=== PATIENT | female | born 1955 | race Caucasian/White ===

== ENCOUNTER 2020-06-21 16:01 | Observation (INO) | payer BC, OTHER ==
[~2020-06-21] VITALS: Ht 165.1 cm; Wt 63.5 kg
[2020-06-21] MEDS ORDERED: Norco 5-325 Ta1 EACH PO (18:49)
[2020-06-21 21:42] LABS: BASOPHILS ABSOLUTE AUTO 0.06 K/mm3 (0.00-0.23); BASOPHILS PERCENT AUTO 1 % (0-2); EOSINOPHILS ABSOLUTE AUTO 0.11 K/mm3 (0.00-0.68); EOSINOPHILS PERCENT AUTO 2 % (0-6); Hematocrit 40.6 % (33.0-51.0); Hemoglobin 13.2 g/dL (11.5-16.0); IMMATURE GRAN ABSOLUTE AUTO 0.07 K/mm3 (0.00-0.10); IMMATURE GRAN PERCENT AUTO 1 % (0-1); LYMPHOCYTES ABSOLUTE AUTO 1.83 K/mm3 (0.84-5.20); LYMPHOCYTES PERCENT AUTO 26 % (21-46); MONOCYTES ABSOLUTE AUTO 0.66 K/mm3 (0.16-1.47); MONOCYTES PERCENT AUTO 9 % (4-13); Mean Corpuscular HGB 28.6 pg (26.0-34.0); Mean Corpuscular HGB Conc 32.5 g/dL (31.5-36.5); Mean Corpuscular Volume 88 fL (80-100); NEUTROPHILS ABSOLUTE AUTO 4.31 K/mm3 (1.96-9.15); NEUTROPHILS PERCENT AUTO 61 % (41-73); Platelet Count 289 K/mm3 (150-400); RDW Coefficient Variation 13.2 % (11.7-14.2); Red Blood Cell Count 4.61 M/mm3 (3.80-5.20); White Blood Cell Count 7.04 K/mm3 (4.00-11.30)
[2020-06-21 21:54] LABS: Alanine Aminotransfer (ALT/SGP 57 U/L (12-78); Albumin, Blood 4.1 g/dL (3.4-5.0); Albumin/Globulin Ratio 1.3 (0.8-1.8); Alk Phos 101 U/L (50-136); Anion Gap 7 mmol/L (6-16); Aspartate Aminotrans (AST/SGOT 64 U/L (12-37); Bilirubin, Total 0.3 mg/dL (0.1-1.0); Blood Urea Nitrogen 17 mg/dL (8-24); Bun/Creatinine Ratio 19.6 (12.0-20.0); CO2, Blood 28 mmol/L (21-32); Calcium, Blood 9.1 mg/dL (8.5-10.1); Chloride, Blood 99 mmol/L (98-108); Creatinine, Blood 0.87 mg/dL (0.40-1.00); Globulin, Blood 3.2 g/dL (2.2-4.0); Glomerular Filtration Rate >60 (60-); Glucose, Blood 120 mg/dL (70-99); Potassium, Blood 4.5 mmol/L (3.5-5.5); Sodium, Blood 134 mmol/L (136-145); Total Protein, Blood 7.3 g/dL (6.4-8.2)
--- NOTE | 2020-06-22 01:18 | NUR ---
PATIENT ARRIVED FROM ER AT 0004 WITH . AWAKE, ALERT AND ORIENTED, UP TO THE BR WITH TOUCH GUARD ASSISTANCE, AND ASSISTANCE WITH PULLING DOWN CLOTHES. BILATERAL UPPER EX WITH SPLINTS FOR RT DISTAL RADIAL FX AND LT DISTAL RADIAL AND ULNAR FRACTURE. PATIENT HAS NUMBNESS AND TINGLING IN HER FINGERS AND THUMBS. PATIENT HAS A 22 G IV IN HER LT FOOT. ORAL CARE DONE, MANDI CARE, AND BILAT UE'S ELEVATED ON PILLOWS. SOFT TOUCH CALL LIGHT PLACED ON HEAD OF BED NEAR RT EAR, PATIENT ABLE TO REACH WITH LT FINGERS.
--- NOTE | 2020-06-22 05:09 | NUR ---
PATIENT SLEPT WELL THIS AM, HELPED TO THE BR, SBA. dILAUDID PO WITH SMALL SIPS OF WATER. PATIENT IS NPO FOR SURGERY TODAY, PT IS SCHEDULED FOR 1200. NO ACUTE CHANGES, CALL LIGHT IN REACH.
--- NOTE | 2020-06-22 09:57 | NUR ---
NG TUBE CLAMPED DR. HAMM CAME IN TO SEE PT AND CLAMPED NG TUBE AT 0915. SHE RECOMMEND SUCTIONING AFTER 4 HRS AT 1300 AND REEVALUATE PATIENT STATUS.
--- NOTE | 2020-06-22 10:14 | NUR ---
PROVIDER ROUNDING DR. IBRAHIM ROUNDED AT APPROXIMATELY 0830. DR. IBRAHIM REPORTED WOULD ATTEMPT TO TRANSFER PT TO A HAND SURGEON. AT TIME OF DR. IBRAHIM ROUNDING, PT WAS OBSERVED TO WIGGLE HER FINGERS. NAIL BEDS APPEARED SLIGHTLY DUSKY AND FINGERS WERE COOL TO THE TOUCH. CAP REFLIL WNL. PT DENIES TINGLING TO HER FINGERS AND WAS ABLE TO FEEL THEM. UNABLE TO ASSESS PULSES R/T SPLINT PLACEMENT.
[2020-06-22] MEDS ORDERED: ONDA4ODT PO (14:37)
[2020-06-22] MEDS ORDERED: Percocet 5-3251 EACH PO (14:39)
--- NOTE | 2020-06-22 15:47 | NUR ---
DISCHARGE PT PROVIDED WITH WRITTEN AND VERBAL DISCHARGE INSTRUCTIONS, SHE REPORTED UNDERSTANDING. PT EDUCATED TO FOLLOW UP WITH DR. TONG TOMORROW AT 0930 AND TO REMAIN NPO AFTER MIDNIGHT TONIGHT IN CASE HE WANTS TO DO SURGERY. PT ALSO EDUCATED ABOUT THE SIGNS OF LOSS OF CIRCULATION AND EDUCATED TO CALL DR. IBRAHIM OR RETURN TO THE ER IF THAT HAPPENS. PT ESCORTED OUT IN W/C AT APPROXIMATELY 1545.
== END 2020-06-22 15:35 | disposition home or self-care (01) ==
LOC: ER 16:01 → SURS 16:02
PROVIDERS: Physician Assistant; ADMIT Hospitalist
DX: S52.571A Other intraarticular fracture of lower end of right radius, initial encounter for closed fracture (principal); S52.572A Other intraarticular fracture of lower end of left radius, initial encounter for closed fracture; S52.602A Unspecified fracture of lower end of left ulna, initial encounter for closed fracture; M19.90 Unspecified osteoarthritis, unspecified site; Z88.2 Allergy status to sulfonamides; Z20.828 Contact with and (suspected) exposure to other viral communicable diseases; V00.121A Fall from non-in-line roller-skates, initial encounter; Y93.51 Activity, roller skating (inline) and skateboarding; Y92.513 Shop (commercial) as the place of occurrence of the external cause
CPT/HCPCS: 25605; 73100; 73110; 73200; 76377; 80053; 85025; 86850; 86900; 86901; 93005; 93010; 96374-59; 96375-59; 96376; 99284-25; G0378; J1170; J2405; U0003

== ENCOUNTER → 2024-07-08 | Outpatient (CLI) | payer BC ==
[~2024-07-08] MED LIST: Norco 5-325 Ta1 EACH PO; ONDA4ODT PO; Percocet 5-3251 EACH PO
== END ==
LOC: LAB SHORT 13:58 → LAB 13:58
DX: L02.415 Cutaneous abscess of right lower limb (principal)
CPT/HCPCS: 87070; 87077; 87147; 87186; 87205